=== PATIENT | female | born 1990 | race Caucasian/White ===

== ENCOUNTER → 2018-01-06 | Outpatient (CLI) | payer OTHER ==
--- NOTE | 2018-01-06 16:09 | XR ---
First digit right foot HISTORY: Pain 2 views of the first digit of the right foot No comparisons Bone mineralization, joint spaces and alignment are maintained. There is no fracture or dislocation. IMPRESSION: Normal first toe right foot
== END | disposition home or self-care (01) ==
LOC: RADXRYALE 13:59
PROVIDERS: ATTEND Physician Assistant Medical
DX: M79.671 Pain in right foot (principal); M79.674 Pain in right toe(s)

== ENCOUNTER → 2018-02-11 | Outpatient (CLI) | payer OTHER ==
--- NOTE | 2018-02-14 09:36 | MM ---
Reason for exam: screening (asymptomatic). Baseline mammogram. History: Patient is nulliparous. Family history of breast cancer in mother at age 50, breast cancer in maternal aunt at age 50, and breast cancer in maternal aunt at age 30. Took hormonal contraceptives beginning at age 17. Physical Findings: Nurse did not find any significant physical abnormalities on exam. MG 3D Screening Mammo W/Cad Bilateral CC and MLO view(s) were taken. The breast tissue is heterogeneously dense. This may lower the sensitivity of mammography. No suspicious abnormality. These results were verbally communicated with the patient and result sheet given to the patient on 02/11/18. ASSESSMENT: Negative, BI-RAD 1 RECOMMENDATION: Routine screening mammogram of both breasts at age 41. (10 years prior to fist degree relative diagnosis of breast cancer)
== END | disposition home or self-care (01) ==
LOC: RADMAMWWP 07:39 → EEVIPCON 07:40
PROVIDERS: ATTEND Family Medicine
DX: Z12.31 Encounter for screening mammogram for malignant neoplasm of breast (principal)
CPT/HCPCS: 77063; 77067

== ENCOUNTER → 2021-03-03 | Outpatient (CLI) | payer OTHER ==
--- NOTE | 2021-03-03 16:37 | US ---
EXAMINATION TYPE: US pelvic complete DATE OF EXAM: 03/03/2021 COMPARISON: NONE CLINICAL HISTORY: N63.11 lump in right breast, N92.6 Irregular cycle. Irregular menstrual cycles, not routinely occurring every 28 to 30 days.Patient takes Prilosec. TECHNIQUE: TA US. Transabdominal sonographic images of the pelvis were acquired. Date of LMP: approximately one week ago EXAM MEASUREMENTS: Uterus: 6.3 x 4.4 x 3.1 cm Endometrial Stripe: 0.9cm Right Ovary: 2.3 x 1.9 x 1.3 cm Left Ovary: 2.3 x 2.8 x 1.9 cm 1. Uterus: Anteverted 2. Endometrium: Mildly thickened for approximately Day 7 LMP. 3. Right Ovary: wnl 4. Left Ovary: wnl 5. Bilateral Adnexa: wnl 6. Posterior cul-de-sac: wnl 7. Incidental Bladder findings: Left ureterocele and hydroureter noted and not seen after post void. IMPRESSION: 1. The endometrial stripe is mildly thickened for a 7 less menstrual period date. The endometrial str ipe measures up to 9 mm. Gynecologic evaluation is recommended. 2. No free fluid. 3. Incidental note of left ureterocele and hydroureter are seen. This is not seen after post void lyndsay ging. Urologic evaluation would BE helpful. 4.Small amount of post void urinary bladder residual.
--- NOTE | 2021-03-04 08:51 | USB ---
Reason for exam: clinical finding. History: Patient is nulliparous. Family history of breast cancer in mother at age 50, breast cancer in maternal aunt at age 50, and breast cancer in maternal aunt at age 30. Took hormonal contraceptives beginning at age 17. Physical Findings: Nurse did not find any significant physical abnormalities on exam. US Breast RT Right complete breast ultrasound includes all four quadrants, the retroareolar region and axilla. Finding demonstrates a 0.4 x 0.6 x 0.3cm oval, cystic simple cyst at 10 o'clock. These results were verbally communicated with the patient and result sheet given to the patient on 03/03/21. ASSESSMENT: Benign, BI-RAD 2 RECOMMENDATION: Routine screening mammogram of both breasts at age 41. (unless clinical indication to start sooner) Manage on a clinical basis with regard to right breast lumps.
== END | disposition home or self-care (01) ==
LOC: RADUSWWP 14:49
PROVIDERS: ATTEND Family Medicine
DX: N60.01 Solitary cyst of right breast (principal); R93.89 Abnormal findings on diagnostic imaging of other specified body structures; N13.4 Hydroureter; Z80.3 Family history of malignant neoplasm of breast
CPT/HCPCS: 76856

== ENCOUNTER → 2021-04-08 | Outpatient (CLI) | payer OTHER ==
[2021-04-08 14:34] VITALS: BP 116/75; PULSE 85; RESP 18; TEMP 98.7
--- NOTE | 2021-04-08 15:22 | P.HPOB ---
History of Present Illness H&P Date: 04/08/21 Chief Complaint: Menstrual frequency changes This is a 30-year-old G0 with an LMP of 03/31/2021. The patient is with her mother, Elizabeth, from whom the patient's history has been obtained. The patient has special needs with some mental impairment and this is why history was obtained from her mother. The patient has been having menstrual periods about every 6-8 weeks, but they have not been writing down dates because it really has not been a problem. She denies going more than 2 months without menstrual periods. Menstrual periods are lasting about 3 days with fairly light flow. Because of this menstrual irregularity, patient underwent a pelvic ultrasound as recommended by her primary health care provider. The pelvic ultrasound done on 03/03/2021 shows a endometrial stripe measuring 9 mm. This was apparently done about 1 week after an LMP. There was no free fluid and ovaries were within normal limits. The ultrasound also showed a left ureterocele and hydroureter. The patient has an appointment to see a urologist for this. She is otherwise without gynecologic complaints. Review of Systems The patient's weight has been stable over the last year. She denies respiratory, cardiac, or G.I. problems. Past Medical History Past Medical History: GERD/Reflux Additional Past Medical History / Comment(s): Seasonal ALLERGIES. PAST BOX LOADER HISTORY: She has no history of STDs. She has not been sexually active in her life. History of Any Multi-Drug Resistant Organisms: None Reported Past Surgical History: Adenoidectomy, Ear Surgery, Tonsillectomy Additional Past Surgical History / Comment(s): Bilateral ear tubes as a child. Past Psychological History: No Psychological Hx Reported Additional Psychological History / Comment(s): Mental impairment history. Smoking Status: Never smoker Past Alcohol Use History: None Reported Past Drug Use History: None Reported Additional History: She lives with her mother. She has never been sexually a ctive. - Past Family History Mother Family Medical History: Cancer Additional Family Medical History / Comment(s): Intraductal breast cancer. Grandfather had an MN and a grandmother had lung cancer. Father Family Medical History: Unable to Obtain Medications and Allergies Home Medications Medication Instructions Recorded Confirmed Type Montelukast Chew [Singulair Chew] 10 mg PO DAILY 04/08/21 04/08/21 History Omeprazole [PriLOSEC] 40 mg PO DAILY 04/08/21 04/08/21 History Allergies Allergy/AdvReac Type Severity Reaction Status Date / Time No Known Allergies Allergy Unverified 04/08/21 14:24 Exam Vital Signs Temp Pulse Resp BP Pulse Ox 04/08/21 14:26 98.7 F 85 18 116/75 98 Intake and Output 04/08/21 04/08/21 04/08/21 06:59 14:59 22:59 Other: Weight 60.781 kg Height 5 feet 4 inches, weight 134 pounds, BMI 23.0. This is a well-developed well-nourished white female who is alert and oriented times 3 in no acute distress. Physical exam and pelvic exam were deferred. IMPRESSION: 1. 30-year-old virginal female with mild oligomenorrhea menstrual cycles are 6- 8 weeks. Endometrial thickness of 9 mm it is not unusual for a menstruating female and I do not consider this abnormal. PLAN: 1. I have had a long discussion with the patient and her mother regarding the slightly infrequent menstrual periods. At this time I do not feel any intervention is necessary. The patient and her mother will keep a menstrual calendar and will call if she is having menstrual problems such as very frequent menstrual periods, long menstrual periods, or very heavy menstrual periods. She will also call if menstrual periods are spacing out much more. 2. Pelvic exam was deferred today. 3. She will return in approximately 6 months with her menstrual calendar and at that time we will do a pelvic exam. 4. The patient's mother states she has an appointment with a urologist to follow-up on the incidental finding of a left ureterocele and hydroureter
== END | disposition home or self-care (01) ==
LOC: WWCWWP 13:56
PROVIDERS: ATTEND Obstetrics & Gynecology
DX: Z53.9 Procedure and treatment not carried out, unspecified reason (principal)

== ENCOUNTER → 2023-02-12 | Outpatient (CLI) | payer OTHER ==
[2023-02-12 15:58] LABS: Chol/HDL Ratio 2.73 Ratio; LDL Cholesterol,Calculated 91.5 mg/dL (0.0-131.0); VLDL Calculation 15.74 mg/dL (5.00-40.00)
[2023-02-12 15:59] LABS: ALT 11 U/L (8-44); AST 18 U/L (13-35); Albumin 4.7 d/dL (3.8-4.9); Albumin/Globulin Ratio 1.74 Ratio (1.60-3.17); Alkaline Phosphatase 83 U/L (41-126); BUN/Creat Ratio 11.14 Ratio (12.00-20.00); Blood Urea Nitrogen 7.8 mg/dL (9.0-27.0); Carbon Dioxide 23.9 mmol/L (21.6-31.8); Chloride 105 mmol/L (96-109); Globulin 2.7 d/dL (1.6-3.3); Glucose 87 mg/dL (70-110); Potassium 4.4 mmol/L (3.5-5.5); Sodium 140 mmol/L (135-145); Total Bilirubin 0.3 mg/dL (0.3-1.2); Total Protein 7.4 d/dL (6.2-8.2)
[2023-02-12 16:04] LABS: HCT 40.9 % (37.2-46.3); HGB 13.2 d/dL (12.0-15.0); MCH 29.1 pg (27.0-32.0); MCHC 32.3 d/dL (32.0-37.0); MCV 90.3 FL (80.0-97.0); Mean Platelet Volume 11.7 FL (9.5-12.2); NRBC Per 100 WBC 0 X 10*3/uL (0.00-0.01); Platelet Count 199 X 10*3/uL (140-440); RBC 4.53 X 10*6/uL (4.10-5.20); RDW 12.8 % (11.5-14.5)
== END | disposition home or self-care (01) ==
LOC: LABWHC1 09:16
PROVIDERS: ATTEND Physician Assistant Medical
DX: Z00.00 Encounter for general adult medical examination without abnormal findings (principal); Z13.29 Encounter for screening for other suspected endocrine disorder; Z13.220 Encounter for screening for lipoid disorders; Z13.228 Encounter for screening for other metabolic disorders; K21.9 Gastro-esophageal reflux disease without esophagitis; F71 Moderate intellectual disabilities
CPT/HCPCS: 36415; 80053; 80061; 84443; 85027